=== PATIENT | female | born 1965 | race Caucasian/White ===

== ENCOUNTER 2020-05-31 07:17 | Outpatient (CLI) | payer OTHER, SELFPAY ==
--- NOTE | ~2020-05-31 | MM_ITS ---
EXAMINATION: MM screening reese BI w kyra HISTORY: Screening mammogram TECHNIQUE: Craniocaudal and mediolateral oblique 3-D tomosynthesis images were obtained and synthetic 2-D images were generated. CAD analysis was submitted and interpreted. COMPARISON: No prior mammogram is available for comparison at this institution. BREAST PARENCHYMAL COMPOSITION: There are scattered areas of fibroglandular density. FINDINGS: There is no evidence of suspicious mass, calcification, or architectural distortion to sugg est malignancy in either breast. There has been no suspicious interval change. IMPRESSION: 1. No mammographic evidence of malignancy. 2. Recommend routine screening mammography in one year. BI-RADS Category 1: Negative Reviewed, dictated and finalized at location B.
== END 2020-05-31 07:18 | disposition home or self-care (01) ==
DX: Z12.31 Encounter for screening mammogram for malignant neoplasm of breast (principal)
CPT/HCPCS: 77063; 77067

== ENCOUNTER 2021-06-09 07:17 | Outpatient (CLI) | payer OTHER, SELFPAY ==
--- NOTE | ~2021-06-09 | MM_ITS ---
EXAMINATION: MM screening reese BI w kyra HISTORY: Screening TECHNIQUE: Craniocaudal and mediolateral oblique 3-D tomosynthesis images were obtained and synthetic 2-D images were generated. CAD analysis was submitted and interpreted. COMPARISON: 05/31/2020 BREAST PARENCHYMAL COMPOSITION: The breasts are almost entirely fatty. FINDINGS: There is no evidence of suspicious mass, calcification, or architectural distortion to sugg est malignancy in either breast. There has been no suspicious interval change. IMPRESSION: 1. No mammographic evidence of malignancy. 2. Recommend routine screening mammography in one year. BI-RADS Category 1: Negative Reviewed, dictated and finalized at location A.
== END 2021-06-09 07:18 | disposition home or self-care (01) ==
LOC: CHSIMG 07:18
DX: Z12.31 Encounter for screening mammogram for malignant neoplasm of breast (principal)
CPT/HCPCS: 77063; 77067

== ENCOUNTER 2022-05-04 09:32 | Emergency (ER) | payer OTHER, SELFPAY ==
[2022-05-04 09:40] VITALS: BP 188/96; PULSE 88; RESP 16; TEMP 36.6; O2SAT 100
--- NOTE | 2022-05-04 09:50 | ED.DENTAL ---
HPI - Dental/Oral General Chief complaint: Dental/Oral Stated complaint: tooth pain Source: patient Mode of arrival: ambulatory Limitations: no limitations History of Present Illness HPI Narrative: 56-year-old female presents to [facility] with complaints of right upper tooth pain for the past 2 days. Patient reports that she had a crown placed to her right upper molar approximately 6 to 12 months ago. Patient reports that she started with increasing pain over the past 2 days. Patient reports that she has had continued sensitivity to the tooth since her crown was placed and her dentist has been watching the tooth closely. Patient has been taking [id number] Tylenol, ibuprofen, applying ice and heat with little relief. Patient denies fever, bodies, chills, nausea, vomiting or diarrhea. MD Complaint: tooth pain Location: Tooth # (3) Onset (ago): day(s) (2) Relieving factors: nothing Exacerbating factors: chewing and drinking fluids Treatment prior to arrival: oral analgesic Related Data Home Medications Medication Instructions Recorded Confirmed lisinopril 20 1 tablet PO DAILY 05/04/22 05/04/22 mg-hydrochlorothiazide 12.5 mg tablet Allergies Allergy/AdvReac Type Severity Reaction Status Date / Time No Known Allergies Allergy Verified 05/04/22 09:57 Review of Systems Constitutional: Constitutional: Denies chills, Denies fatigue, Denies fever(s) and Denies weakness ENT: Denies dizziness, Denies epistaxis and Denies nasal congestion Comments: right upper tooth pain Cardiovascular: Cardiovascular: Denies chest pain and Denies rapid heart rate Respiratory: Respiratory: Denies chest congestion, Denies cough, Denies dyspnea and Denies wheezing Gastrointestinal: Gastrointestinal: Denies abdominal pain, Denies constipation, Denies nausea and Denies vomiting Integumentary/Breasts: Skin/Breast: Denies rash PMFSH Past Medical History Medical History (Updated 05/04/22 @ 09:57 by Tasia Taylor APRN) Tonsillectomy planned Family History Family History (Updated 05/04/22 @ 09:55 by Tasia Taylor APRN) Father Hypertension Mother Kidney disease Social History Social History (Updated 05/04/22 @ 09:55 by Tasia Taylor APRN) Smoking status: Never smoker Exam Const: General: healthy appearing Nutritional Appearance: well nourished Orientation/consciousness: patient oriented x3 Limitations: no limitations HENMT: Head: normal to inspection Mouth: Yes lip normal and Yes moist mucous membranes Teeth and gingiva: abnormal tooth and associated gingiva (Erythema and moderate gum swelling noted surrounding tooth #3. ) Throat: posterior oropharynx normal and uvula midline Other: There is no obvious dental abscess noted Eyes: Conjunctivae: conjunctivae normal Neck: Neck: normal visual inspection Resp: Effort & Inspection: normal respiratory effort and not labored Auscultation: clear to auscultation bilaterally, no crackles, no rales and no rhonchi Cardio: Rate: regular rate Rhythm: regular rhythm Heart sounds: no murmurs Skin: General skin exam: normal color Rashes: no rashes Wounds: no wounds Neuro: General: patient oriented x3 Cranial nerves: Yes Nystagmus not present Speech: normal speech Gait exam (Neuro): Normal gait present Psych: Mental Status: mental status grossly normal Affect: normal affect Attitude: cooperative Course Course Level of Care: Express Care Visit Vital Signs Vital signs: Vital Signs Temperature 36.6 C 05/04/22 09:40 Pulse Rate 88 05/04/22 09:40 Respiratory Rate 16 05/04/22 09:40 Blood Pressure 188/96 H 05/04/22 09:40 Pulse Oximetry 100 05/04/22 09:40 Temperature 36.6 C 05/04/22 09:40 Pulse Rate 88 05/04/22 09:40 Respiratory Rate 16 05/04/22 09:40 Blood Pressure 188/96 H 05/04/22 09:40 Pulse Oximetry 100 05/04/22 09:40 MDM - Dental/Oral MDM Narrative Medical decision making narrative: Blake
[2022-05-04 10:06] VITALS: BP 140/90
== END 2022-05-04 10:06 | disposition home or self-care (01) ==
PROVIDERS: Emergency Provider Nurse Practitioner Family
DX: K08.89 Other specified disorders of teeth and supporting structures (principal)
CPT/HCPCS: 99213; G0463